=== PATIENT | female | born 1965 | race Caucasian/White ===

== ENCOUNTER 2017-01-24 07:44 | Day surgery (SDC) | payer OTHER ==
[~2017-01-24] VITALS: Ht 157.5 cm; Wt 72.5 kg
[2017-01-24 08:31] VITALS: Ht 157.5 cm; Wt 72.5 kg
[2017-01-24] MEDS ORDERED: VENTOLIN INHALER (08:46)
[2017-01-24] MEDS ORDERED: OMEPRAZOLE (08:46)
[2017-01-24 08:51] VITALS: BP 129/76; PULSE 68; RESP 11
[2017-01-24] MEDS ORDERED: MIDAZOLAM 1 MG/ML 2 ML INJ ONE ×3 (09:54)
[2017-01-24] MEDS ORDERED: FENTAnyl 50 MCG/ML VIAL ONE (09:54)
[2017-01-24 10:20] VITALS: BP 116/70; PULSE 68; RESP 18
--- NOTE | 2017-01-24 11:10 | GILP ---
DATE OF PROCEDURE: 01/24/2017 NAME OF PROCEDURES: 1. Esophagogastroduodenoscopy and biopsy. 2. Colonoscopy. SURGEON: Ton Huang MD PREOPERATIVE DIAGNOSES: 1. Abdominal pain. 2. Screening colonoscopy. POSTOPERATIVE DIAGNOSES: 1. Gastroesophageal reflux disease. 2. Gastritis. 3. Gastric mucosal biopsies were taken for Helicobacter pylori test. 4. Colonoscopy all the way to the cecum. 5. Melanosis coli. 6. Diverticulosis of the colon. 7. Internal hemorrhoids. 8. No colon neoplasm was identified. INDICATION FOR THE PROCEDURE: Ms. Jacquelin Seo is a 51-year-old female patient who had upper abdo rod pain, not responding to therapy. She also needed screening colonoscopy. The procedures and possible complications are well explained to the patient, she understood and cons ented to the procedure. DESCRIPTION OF PROCEDURE: Under the influence of fentanyl and Versed, the gastroscope was carefully introduced into the esophagus and under direct vision, it was advanced to the stomach and through t he pylorus into the duodenal bulb and descending duodenum. FINDINGS: ESOPHAGUS: The patient had gastroesophageal reflux disease. STOMACH: She had gastritis with erosions. Gastric mucosal biopsies were taken for H. pylori test. DUODENUM: Normal. The colonoscope was carefully introduced in the rectum and under direct vision, it was advanced all the way to the cecum. FINDINGS: The patient had melanosis coli. She also had internal hemorrhoids. No colon neoplasm wa s identified. She tolerated the procedures very well and there was no complication from the procedures. At the en d of the procedures, she was awake with stable vital signs and she was discharged home to the care o f her family. IMPRESSION: Please see postoperative diagnoses. PLAN: 1. Continue omeprazole. 2. Add Zantac 300 mg p.o. at bedtime. 3. Await H. pylori test report. Dictated By: TON HUANG MD GD/NTS Conf#: [id number] DID#: [id number] CC: TON HUANG MD;*EndCC*
== END 2017-01-24 12:04 | disposition home or self-care (01) ==
LOC: GIL 07:44
PROVIDERS: ATTEND Internal Medicine Gastroenterology
DX: Z12.11 Encounter for screening for malignant neoplasm of colon (principal); K21.9 Gastro-esophageal reflux disease without esophagitis; K29.70 Gastritis, unspecified, without bleeding; K63.89 Other specified diseases of intestine; K57.90 Diverticulosis of intestine, part unspecified, without perforation or abscess without bleeding; K64.8 Other hemorrhoids
CPT/HCPCS: 43239; 45378; 87081; J2250; J3010; Z7610